=== PATIENT | male | born 1950 | race Caucasian/White ===

== ENCOUNTER 2018-04-01 07:10 | Emergency (ER) | payer SELFPAY ==
[~2018-04-01 07:10] MED LIST: ATENOLOL
== END 2018-04-01 07:20 | disposition left against medical advice (07) ==
LOC: ED 07:14
DX: M79.661 Pain in right lower leg (principal); Z53.21 Procedure and treatment not carried out due to patient leaving prior to being seen by health care provider

== ENCOUNTER 2018-04-27 10:23 | Emergency (ER) | payer SELFPAY ==
[~2018-04-27] VITALS: Ht 160 cm; Wt 70.8 kg
[2018-04-27 10:32] VITALS: BP 150/95
--- NOTE | 2018-04-27 10:46 | NUR ---
Pt ambulates with steady gait and balance to room. Pt resting on gurney. NADN. NO defecits observed.
--- NOTE | 2018-04-27 10:50 | NUR ---
FIRST CONTACT WITH PT. Pt curled in position on bed. Provided pt warm blankets for comfort measures. Pt states, "About 15 to 20 minutes ago I started not being able to feel my feet." NADN. All safety measure in place. Pt declining NIBP and pulse ox at this time. Pt has call light within reach.
--- NOTE | 2018-04-27 11:24 | NUR ---
Provided warm foot bath per ED PA order. Pt appreciative. Pt repeatedly states, "You're so beautiful, you have beautiful eyes." Pt sniffing when RN near by. Provided pt call light and warm blankets. Pt appreciative.
[2018-04-27] MEDS ORDERED: IBUPROFEN 600 MG TABLET ONE (12:11)
--- NOTE | 2018-04-27 12:15 | NUR ---
Provided pt medication per EMAR for "5/10 headache" pt appreciative. Provided pt discharge paperwork. Pt states verbal understanding. Pt getting dressed at this time.
[2018-04-27] MEDS ORDERED: IBUPROFEN 200 MG TABLET PO ONE (12:30)
== END 2018-04-27 12:24 | disposition home or self-care (01) ==
LOC: ED 12:18
DX: T69.8XXA Other specified effects of reduced temperature, initial encounter (principal); I10 Essential (primary) hypertension; Z72.9 Problem related to lifestyle, unspecified; X31.XXXA Exposure to excessive natural cold, initial encounter; Y93.89 Activity, other specified; Y92.009 Unspecified place in unspecified non-institutional (private) residence as the place of occurrence of the external cause; Y99.8 Other external cause status
CPT/HCPCS: 99283